=== PATIENT | female | born 1985 | race Caucasian/White ===

== ENCOUNTER 2023-11-07 15:29 | Emergency (ER) | payer MEDICAID ==
[~2023-11-07] VITALS: Ht 154.9 cm; Wt 80.0 kg
[2023-11-07 15:38] VITALS: BP 127/84; PULSE 110; RESP 18; TEMP 98.4; O2SAT 98
[2023-11-07] MEDS ORDERED: KETOROLAC 60MG/2ML VIAL IM ONE (17:30)
[2023-11-07] MEDS: KETOROLAC 30MG/ML VIAL IM NR (18:30)
[2023-11-07] MEDS ORDERED: PEN G BENZ/PEN G PROCAINE CR 1.2 MMU/2 ML IM ONE (19:15)
[2023-11-07] MEDS ORDERED: IBUP-2029 MT (19:41)
[2023-11-07] MEDS: PENICILLIN G BENZATHINE 1,200,000 UNITS/2ML SYR IM NR (20:40)
== END 2023-11-07 20:45 | disposition home or self-care (01) ==
LOC: ER 15:29
DX: J02.0 Streptococcal pharyngitis (principal); E11.9 Type 2 diabetes mellitus without complications; Z90.49 Acquired absence of other specified parts of digestive tract
CPT/HCPCS: 81025; 87430; 96372; 99284; J1885; J0561; Z7610; J0558